=== PATIENT | female | born 1990 | race Hispanic/Latino ===

== ENCOUNTER 2017-12-30 09:49 | Emergency (ER) | payer SELFPAY ==
[~2017-12-30] VITALS: Ht 154.9 cm; Wt 68.0 kg
[~2017-12-30 09:49] MED LIST: CIPRO500 MG PO; LORTAB 7.57.5 MG/TAB OR; LORTAB5 PO; NO CURRENT MEDS; PRE-NATAL PO
[2017-12-30] MEDS ORDERED: SYNTHROID50 MCG PO (10:06)
[2017-12-30] MEDS ORDERED: MUPIROCIN21 PO (10:30)
[2017-12-30] MEDS ORDERED: CEPHALEXIN500 M1 PO (10:30)
[2017-12-30 10:59] VITALS: BP 126/95
== END 2017-12-30 11:08 | disposition home or self-care (01) | DRG 605 ==
LOC: ED 09:49
PROC: 0HQFXZZ Repair Right Hand Skin, External Approach (ICD-10-PCS; principal; 2017-12-30)
DX: S61.411A Laceration without foreign body of right hand, initial encounter (principal); W25.XXXA Contact with sharp glass, initial encounter; Y93.G1 Activity, food preparation and clean up; Y92.000 Kitchen of unspecified non-institutional (private) residence as the place of occurrence of the external cause

== ENCOUNTER 2018-03-14 03:55 | Emergency (ER) | payer BC ==
[~2018-03-14] VITALS: Ht 154.9 cm; Wt 66.4 kg
[~2018-03-14 03:55] MED LIST changes: +CEPHALEXIN500 M1 PO; +MUPIROCIN21 PO; +SYNTHROID50 MCG PO
[2018-03-14 04:42] LABS: IMMATURE GRANULOCYTES 0.3 % (0.0-5.0); MEAN CORPUSCULAR HGB 30.4 pG CALC (26.0-32.0); MEAN CORPUSCULAR HGB CONC 33.2 g/L CALC (32.0-36.0); NEUT# 3.6 thou/uL (2.00-7.15); RED BLOOD COUNT 4.5 mill/uL (4.20-5.60); RED CELL DISTRI WIDTH 12.2 % (11.5-15.5)
[2018-03-14 04:43] LABS: HEMATOCRIT 41.3 % (37.0-47.0); HEMOGLOBIN 13.7 g/dl (12.0-16.0); MEAN CELL VOLUME 91.8 fL CALC (80.0-100.0)
[2018-03-14 04:46] LABS: URINE BILIRUBIN - DIPSTICK NEGATIVE (NEGATIVE); URINE BLOOD DIPSTICK LARGE (NEGATIVE); URINE COLOR RED; URINE GLUCOSE - DIPSTICK NEGATIVE (NEGATIVE); URINE KETONE NEGATIVE (NEGATIVE); URINE LEUK ESTERASE NEGATIVE (NEGATIVE); URINE NITRITE - DIPSTICK NEGATIVE (Negative); URINE PH 6.5 (4.5-8.0); URINE PROTEIN - DIPSTICK 30 mg/dL (NEG-TRACE); URINE SPECIFIC GRAVITY <=1.005; URINE UROBILINOGEN - DIPSTICK 0.2 E.U./dL (0.2)
[2018-03-14 04:49] LABS: URINE RBC 25-50 RBC/hpf (0-5); URINE SQUAMOUS EPITHELIAL CELL FEW EPI/hpf (0-FEW)
[2018-03-14 04:53] LABS: ALBUMIN 3.7 g/dL (3.2-5.0); ANION GAP 13 (6-22 (CALC)); BILIRUBIN, TOTAL 0.2 mg/dL (0.0-1.4); BUN 8 mg/dL (7-17); BUN/CREATININE RATIO 13 (12-20 (CALC)); CARBON DIOXIDE 22 mmol/l (22-30); CHLORIDE 108 mmol/l (95-108); CREATININE 0.6 mg/dL (0.5-1.0); GFR > 60 ML/MIN (>=60 (CALC)); GFR FOR AFR.AMER. > 60 ML/MIN (>=60 (CALC)); POTASSIUM 3.6 mmol/l (3.5-5.1); SGOT/AST 36 u/l (14-36); SODIUM 140 mmol/l (137-146); TOTAL PROTEIN 6.8 g/dL (6.3-8.2)
[2018-03-14 04:54] LABS: ALKALINE PHOSPHATASE 65 u/l (38-126)
[2018-03-14 05:10] LABS: BETA-HCG, QUANT(RESULT NUMBER) 8805 mIU/mL
[2018-03-14 05:24] LABS: TSH, 3RD GENERATION 5.21 uIU/mL (0.47 - 4.68)
[2018-03-14 06:08] VITALS: BP 120/75
== END 2018-03-14 11:30 | DRG 779 ==
LOC: ED 03:55
PROVIDERS: Emergency Medicine
DX: O03.4 Incomplete spontaneous abortion without complication (principal); O20.9 Hemorrhage in early pregnancy, unspecified; Z3A.10 10 weeks gestation of pregnancy

== ENCOUNTER 2018-03-20 13:15 | Emergency (ER) | payer OTHER, BC ==
[~2018-03-20] VITALS: Ht 154.9 cm; Wt 72.7 kg
[2018-03-20 13:54] LABS: HEMATOCRIT 40.8 % (37.0-47.0); HEMOGLOBIN 13.4 g/dl (12.0-16.0); IMMATURE GRANULOCYTES 0.3 % (0.0-5.0); MEAN CELL VOLUME 92.9 fL CALC (80.0-100.0); MEAN CORPUSCULAR HGB 30.5 pG CALC (26.0-32.0); MEAN CORPUSCULAR HGB CONC 32.8 g/L CALC (32.0-36.0); NEUT# 3.55 thou/uL (2.00-7.15); RED BLOOD COUNT 4.39 mill/uL (4.20-5.60)
[2018-03-20 14:05] LABS: ALBUMIN 4.1 g/dL (3.2-5.0); ALKALINE PHOSPHATASE 65 u/l (38-126); ANION GAP 14 (6-22 (CALC)); BILIRUBIN, TOTAL 0.3 mg/dL (0.0-1.4); BUN 10 mg/dL (7-17); BUN/CREATININE RATIO 15 (12-20 (CALC)); CARBON DIOXIDE 23 mmol/l (22-30); CHLORIDE 107 mmol/l (95-108); CREATININE 0.6 mg/dL (0.5-1.0); GFR > 60 ML/MIN (>=60 (CALC)); GFR FOR AFR.AMER. > 60 ML/MIN (>=60 (CALC)); POTASSIUM 4.2 mmol/l (3.5-5.1); SGOT/AST 44 u/l (14-36); SODIUM 140 mmol/l (137-146); TOTAL PROTEIN 7.3 g/dL (6.3-8.2)
[2018-03-20] MEDS ORDERED: FLEXERIL PO (15:41)
[2018-03-20] MEDS ORDERED: TORADOL PO (15:41)
[2018-03-20 16:15] VITALS: BP 113/68
== END 2018-03-20 16:15 | disposition home or self-care (01) | DRG 125 ==
LOC: ED 13:15
PROVIDERS: Emergency Medicine
DX: S01.111A Laceration without foreign body of right eyelid and periocular area, initial encounter (principal); S80.212A Abrasion, left knee, initial encounter; S76.012A Strain of muscle, fascia and tendon of left hip, initial encounter; V53.6XXA Passenger in pick-up truck or van injured in collision with car, pick-up truck or van in traffic accident, initial encounter